=== PATIENT | male | born 1955 | race Caucasian/White ===

== ENCOUNTER → 2017-01-07 | Day surgery (SDC) | payer BC | LOC: MSO 08:08 | DX: Z12.11 Encounter for screening for malignant neoplasm of colon (principal); Z86.010 Personal history of colon polyps; I10 Essential (primary) hypertension; F17.210 Nicotine dependence, cigarettes, uncomplicated; D12.2 Benign neoplasm of ascending colon; K63.5 Polyp of colon | CPT/HCPCS: 00810; J7120 ==

== ENCOUNTER → 2021-10-18 | Outpatient (CLI) | payer MEDICARE, BC | LOC: RAD 08:59 | DX: Z13.6 Encounter for screening for cardiovascular disorders (principal) ==